=== PATIENT | male | born 1985 | race Caucasian/White ===

== ENCOUNTER 2018-11-09 13:02 | Emergency (ER) | payer OTHER ==
--- NOTE | 2018-11-09 14:56 | ED ---
Skin Complaint - HPI Summary HPI Summary: 32-year-old male presents with rash for the past couple days. He states that it started on his hands and has spread up his arm. He states now starting on his legs. He states the rash is very itchy. He denies any new shampoos or products. He states that he has been living at different places. He states no one where he is currently staying has a rash. Never had this rash before. He denies any change in detergent. No sore throat. No fever. No chest pain or shortness breath. No cough. no abdominal pain nausea or vomiting. Did not eat anything different. 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 - History of Current Complaint Chief Complaint: EDRashSkinAbscess Time Seen by Provider: 11/09/18 14:35 Stated Complaint: POSS RASH Pain Intensity: 1 - Allergy/Home Medications Allergies/Adverse Reactions: Allergies Allergy/AdvReac Type Severity Reaction Status Date / Time No Known Allergies Allergy Verified 11/09/18 13:07 PMH/Surg Hx/FS Hx/Imm Hx Endocrine/Hematology History: Denies: Hx Anticoagulant Therapy Respiratory History: Denies: Hx Asthma Infectious Disease History: No Infectious Disease History: Denies: Traveled Outside the [place] in Last 30 Days - Family History Known Family History: Positive: Non-Contributory - Social History Alcohol Use: Occasionally Substance Use Type: Reports: None Smoking Status (MU): Current Some Day Smoker Review of Systems Negative: Fever Negative: Chest Pain Negative: Shortness Of Breath Positive: Rash All Other Systems Reviewed And Are Negative: Yes Physical Exam Triage Information Reviewed: Yes Vital Signs On Initial Exam: Initial Vitals Temp Pulse Resp BP Pulse Ox 97.8 F 95 18 145/86 98 11/09/18 13:04 11/09/18 13:04 11/09/18 13:04 11/09/18 13:04 11/09/18 13:04 Vital Signs Reviewed: Yes Appearance: Positive: Well-Appearing Skin: Positive: Warm, Dry, Other - multiple papules with exocriation across body particular present under arm and hands Head/Face: Positive: Normal Head/Face Inspection Eyes: Positive: Normal, Conjunctiva Clear ENT: Positive: Pharynx normal Respiratory/Lung Sounds: Positive: Clear to Auscultation, Breath Sounds Present Cardiovascular: Positive: Normal, RRR Abdomen Description: Positive: Nontender, Soft Bowel Sounds: Positive: Present Musculoskeletal: Positive: Normal Neurological: Positive: Normal Psychiatric: Positive: Normal Diagnostics - Vital Signs Vital Signs Temp Pulse Resp BP Pulse Ox 11/09/18 13:04 97.8 F 95 18 145/86 98 - Laboratory Lab Statement: Any lab studies that have been ordered have been reviewed, and results considered in the medical decision making process. Course/Dx - Course Course Of Treatment: 32-year-old male presents with rash for the past couple days. He states that it started on his hands and has spread up his arm. He states now starting on his legs. He states the rash is very itchy. He denies any new shampoos or products. He states that he has been living at different places. He states no one where he is currently staying has a rash. Never had this rash before. He denies any change in detergent. No sore throat. No fever. No chest pain or shortness breath. No cough. no abdominal pain nausea or vomiting. Did not eat anything different. 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 On exam has multiple papules across body with excoriation greatest on under arm and hand. With distribution of the rash likely scabies. We'll treat with permethrin. Told to take hydroxyzine for the itching and can apply hydrocortisone after has used the permethrin. Told to follow-up with primary no improvement. Patient understands agrees plan. - Differential Diagnoses - Skin Complaint Differential Diagnoses: Contact Dermatitis, Scabies, Other - bed bugs - Diagnoses Provider Diagnoses: Rash Discharge - Sign-Out/Discharge Documenting (check all that apply): Patient Departure Patient Received Moderate/Deep Sedation with Procedure: No - Discharge Plan Condition: Good Disposition: HOME Prescriptions: hydrOXYzine HCL TAB* [Atarax 25 MG TAB*] 25 mg PO QID PRN #20 tab PRN Reason: Pruritis Permethrin 5% CREAM* 1 applic TOPICAL SEE INSTRUCTIONS #1 tube Patient Education Materials: Scabies (ED) Forms: *Work Release Referrals: Rajeev Ballesteros DO [Primary Care Provider] - Additional Instructions: apply cream thoroughly across entire body and massage, leave on for 8-14 hours, you can do this overnight Take hydroxyzine every 6 hours as needed for itching after cream is applied and removed, can apply hydrocortisone to the areas that are itchy Follow up with primary if no improvement Return to ED if develop any new or worsening symptoms - Billing Disposition and Condition Condition: GOOD Disposition: Home
[2018-11-09 15:18] VITALS: BP 141/79
== END 2018-11-09 15:15 | disposition home or self-care (01) ==
LOC: ED 13:02
DX: R21 Rash and other nonspecific skin eruption (principal); Z72.0 Tobacco use
CPT/HCPCS: 99282